=== PATIENT | female | born 1960 | race Hispanic/Latino ===

== ENCOUNTER 2017-03-26 20:31 | Emergency (ER) | payer OTHER ==
[2017-03-26 20:32] VITALS: BMI 20.9
[2017-03-26 21:01] VITALS: RESP 18; TEMP 98.1
[2017-03-26 22:45] LABS: BASO # 0.05 K/mm3 (0.0-2.0); BASO % 0.5 % (0.0-3.0); EOS # 0.1 (0.0-0.7); EOS % 1.4 % (1.5-5.0); GRAN # 5.13 (1.4-6.5); HEMOGLOBIN 12.3 gm/dL (12.0-16.0); LYMPH # 4.3 (1.2-3.4); LYMPH % 41.8 % (22.0-35.0); MEAN CELL VOLUME 94.9 fL (80.0-105.0); MEAN CORPUSCULAR HEMOGLOBIN 31.1 pg (25.0-35.0); MEAN CORPUSCULAR HGB CONC 32.7 g/dl (31.0-37.0); MEAN PLATELET VOLUME 10.7 fl (7.0-11.0); MONO # 0.6 (0.1-0.6); MONO % 6.3 % (1.0-6.0); PLATELET COUNT 221 10^3/uL (120.0-450.0); RBC 3.96 10^6/uL (3.5-6.1); RED CELL DISTRIBUTION WIDTH 15.9 % (11.5-14.5); WHITE BLOOD COUNT 10.2 10^3/ul (4.5-11.0)
[2017-03-26 22:56] LABS: ALB/GLOB RATIO 1.4 (1.1-1.8); ALBUMIN 4.3 g/dL (3.0-4.8); ALT/SGPT 25 U/L (7-56); AST/SGOT 25 U/L (15-39); BLOOD UREA NITROGEN 17 mg/dL (7-21); CALCIUM 8.9 mg/dL (8.4-10.5); GFR AFRICAN-AMERICAN > 60; GFR NON-AFRICAN AMERICAN > 60
[2017-03-26 23:09] LABS: INR 0.93 (0.93-1.08); PARTIAL THROMBOPLASTIN TIME 30.3 Seconds (23.7-30.8)
[2017-03-26 23:27] VITALS: BP 140/80; PULSE 83; O2SAT 100
[2017-03-27] MEDS ORDERED: Lidocaine 1% Inj (20ml) ONE (02:21)
--- NOTE | 2017-04-16 16:12 | ED PDOC ---
Arrival/HPI - General Chief Complaint: Lower Extremity Problem/Injury Time Seen by Provider: 03/26/17 21:48 - History of Present Illness Narrative History of Present Illness (Text): 56F c/o redness, pain, swelling of her right foot. she said she had the same sx in the past and was given clindamycin and then her sx resolved. she denies any f /c, n/v. Past Medical History - Cardiac Hx Cardiac Disorders: No - Pulmonary Other/Comment: 2ppd smoker - Neurological Hx Neurological Disorder: No - HEENT Hx HEENT Disorder: No - Renal Hx Renal Disorder: No - Endocrine/Metabolic Hx Endocrine Disorders: No - Hematological/Oncological Hx Blood Disorders: No - Integumentary Hx Dermatological Disorder: No - Musculoskeletal/Rheumatological Hx Musculoskeletal Disorders: No Hx Falls: No - Gastrointestinal Hx Gastrointestinal Disorders: No - Genitourinary/Gynecological Hx Genitourinary Disorders: No - Psychiatric Hx Psychophysiologic Disorder: Yes Hx Anxiety: Yes Hx Depression: Yes Hx Substance Use: No - Surgical History Hx Amputation: No Other/Comment: c/s x2 Family/Social History Family/Social History: Other (nc) Smoking Status: no Hx Alcohol Use: Yes Hx Substance Use: No Allergies/Home Meds Allergies/Adverse Reactions: Allergies amoxicillin Allergy (Verified 04/02/17 17:01) ANAPHYLAXIS Penicillins Allergy (Verified 04/02/17 17:01) ANAPHYLAXIS Home Medications: Home Meds Medication Instructions Recorded Confirmed traZODone [Desyrel] 100 mg PO HS 06/15/16 04/02/17 Review of Systems - Review of Systems Constitutional: absent: Fevers Respiratory: absent: SOB, Cough Cardiovascular: absent: Chest Pain Gastrointestinal: absent: Abdominal Pain, Nausea, Vomiting Physical Exam Vital Signs Reviewed: Yes Vital Signs Temp Pulse Resp BP Pulse Ox 03/26/17 23:26 83 18 140/80 100 03/26/17 20:58 98.1 F 88 18 136/84 99 Appearance: Positive for: Well-Appearing, Non-Toxic, Comfortable Pain Distress: None Mental Status: Positive for: Alert and Oriented X 3 - Systems Exam Head: Present: Atraumatic Respiratory/Chest: No: Respiratory Distress, Accessory Muscle Use Cardiovascular: Present: Regular Rate and Rhythm Lower Extremity: Present: NORMAL PULSES, Neurovascularly Intact, Other (mild edema and erythema over the dorsal aspect of the right foot). No: CALF TENDERNESS Neurological: Present: GCS=15, Other (no focal deficits) Skin: Present: Warm, Dry Psychiatric: Present: Alert, Oriented x 3 Medical Decision Making ED Course and Treatment: pt appears well. vitals stable, labs unremarkable. pt agrees w plan dc w po abx and return if worse. - Lab Interpretations Lab Results: 03/26/17 22:36 03/26/17 22:36 Lab Results 03/26/17 22:36: PT 10.0, INR 0.93, APTT 30.3 03/26/17 22:36: Sodium 135, Potassium 3.2 L, Chloride 101, Carbon Dioxide 24, Anion Gap 13, BUN 17, Creatinine 0.6, Est GFR ( Amer) > 60, Est GFR (Non- Af Amer) > 60, Random Glucose 98, Calcium 8.9, Total Bilirubin 0.3, AST 25, ALT 25, Alkaline Phosphatase 66, Total Protein 7.3, Albumin 4.3, Globulin 3.0, Albumin/Globulin Ratio 1.4 03/26/17 22:36: WBC 10.2, RBC 3.96, Hgb 12.3, Hct 37.6, MCV 94.9, MCH 31.1, MCHC 32.7, RDW 15.9 H, Plt Count 221, MPV 10.7, Gran % 50.0, Lymph % (Auto) 41.8 H, [place] % (Auto) 6.3 H, Eos % (Auto) 1.4 L, Baso % (Auto) 0.5, Gran # 5.13 , Lymph # 4.3 H, [place] # 0.6, Eos # 0.1, Baso # 0.05 - Medication Orders Current Medication Orders: Discontinued Medications Clindamycin HCl (Cleocin) 300 mg PO STAT STA PRN Reason: Protocol Stop: 03/26/17 22:05 Last Admin: 03/26/17 22:24 Dose: 300 mg Lidocaine HCl (Lidocaine 1% (20ml)) Confirm Administered Dose 20 ml .ROUTE .Buck- MED ONE Stop: 03/27/17 02:22 Disposition/Present on Arrival - Present on Arrival Any Indicators Present on Arrival: No History of DVT/PE: No History of Uncontrolled Diabetes: No Urinary Catheter: No History of Decub. Ulcer: No History Surgical Site Infection Following: None - Disposition Have Diagnosis and Disposition been Completed?: Yes Diagnosis: Cellulitis of foot Disposition: HOME/ ROUTINE Disposition Time: 23:26 Condition: GOOD Discharge Instructions (ExitCare): Cellulitis (ED) Additional Instructions: Please follow up with your doctor. Return to the ER for any worsening symptoms or for any other concerns. Prescriptions: Clindamycin [Cleocin] 300 mg PO QID #28 cap Referrals: Jake Solomon MD [Primary Care Provider] - Follow up with primary
== END 2017-03-26 23:26 | disposition home or self-care (01) ==
LOC: ED 20:31
DX: L03.115 Cellulitis of right lower limb (principal)

== ENCOUNTER 2017-04-02 16:27 | Emergency (ER) | payer OTHER ==
[2017-04-02 16:58] VITALS: TEMP 97.9; BMI 21.6
[2017-04-02 17:49] LABS: ADD MANUAL DIFF? NO
[2017-04-02 17:56] LABS: BASO # 0.04 K/mm3 (0.0-2.0); BASO % 0.5 % (0.0-3.0); EOS # 0.1 (0.0-0.7); EOS % 1.4 % (1.5-5.0); GRAN # 4.66 (1.4-6.5); GRAN % 55.4 % (50.0-68.0); HEMATOCRIT 39.4 % (36.0-48.0); LYMPH # 3.1 (1.2-3.4); LYMPH % 36.6 % (22.0-35.0); MEAN CELL VOLUME 95.2 fL (80.0-105.0); MEAN CORPUSCULAR HEMOGLOBIN 31.6 pg (25.0-35.0); MEAN CORPUSCULAR HGB CONC 33.2 g/dl (31.0-37.0); MEAN PLATELET VOLUME 10.2 fl (7.0-11.0); MONO # 0.5 (0.1-0.6); MONO % 6.1 % (1.0-6.0); PLATELET COUNT 276 10^3/uL (120.0-450.0); RED CELL DISTRIBUTION WIDTH 15.8 % (11.5-14.5); WHITE BLOOD COUNT 8.4 10^3/ul (4.5-11.0)
--- NOTE | 2017-04-02 18:01 | ED PDOC ---
Arrival/HPI - General Chief Complaint: Lower Extremity Problem/Injury Time Seen by Provider: 04/02/17 17:01 Historian: Patient - History of Present Illness Narrative History of Present Illness (Text): 04/02/17 18:11 56-year-old female presents today with a one-week history of right foot pain and swelling. Patient states she was seen in the emergency room approximately a week ago and was started on clindamycin for possible infection in the right foot. Patient denies any recent trauma or injury. Patient states at that time she just assumed she was developing a cellulitis as she has had cellulitis in the past and her feet. Patient denies numbness weakness or tingling in the extremity. No chest pain or shortness of breath. She denies fevers or chills at home. Patient states there is no improvement in the swelling or erythema despite the antibiotics. Patient also complaining of a cramping sensation in the right leg last night. No other complaints Time/Duration: 1 week Symptom Course: Unchanged Quality: Aching, Pressure Severity Level: 4 Past Medical History - Provider Review Nursing Documentation Reviewed: Yes - Travel History Have you recently traveled outside [place] w/in the past 3 mons?: No - Infectious Disease Hx of Infectious Diseases: None - Tetanus Immunization Tetanus Immunization: Unknown - Cardiac Hx Cardiac Disorders: No - Pulmonary Other/Comment: 2ppd smoker - Neurological Hx Neurological Disorder: No - HEENT Hx HEENT Disorder: No - Renal Hx Renal Disorder: No - Endocrine/Metabolic Hx Endocrine Disorders: No - Hematological/Oncological Hx Blood Disorders: No - Integumentary Hx Dermatological Disorder: Yes Hx Cellulitis: Yes - Musculoskeletal/Rheumatological Hx Musculoskeletal Disorders: No Hx Falls: No - Gastrointestinal Hx Gastrointestinal Disorders: No - Genitourinary/Gynecological Hx Genitourinary Disorders: No - Psychiatric Hx Psychophysiologic Disorder: Yes Hx Anxiety: Yes Hx Depression: Yes Hx Substance Use: No - Surgical History Other/Comment: c/s x2 - Anesthesia Hx Anesthesia: Yes Hx Anesthesia Reactions: No Family/Social History - Physician Review Nursing Documentation Reviewed: Yes Family/Social History: Unknown Family HX Smoking Status: no Hx Alcohol Use: Yes Hx Substance Use: No Allergies/Home Meds Allergies/Adverse Reactions: Allergies amoxicillin Allergy (Verified 04/02/17 17:01) ANAPHYLAXIS Penicillins Allergy (Verified 04/02/17 17:01) ANAPHYLAXIS Home Medications: Home Meds Medication Instructions Recorded Confirmed traZODone [Desyrel] 100 mg PO HS 06/15/16 04/02/17 Review of Systems - Review of Systems Constitutional: absent: Fatigue, Fevers Respiratory: absent: SOB, Cough Cardiovascular: absent: Chest Pain, Palpitations Gastrointestinal: absent: Abdominal Pain, Diarrhea, Nausea, Vomiting Musculoskeletal: Arthralgias Skin: Rash, Cellulitis Neurological: absent: Headache, Dizziness Psychiatric: absent: Anxiety, Depression Physical Exam Vital Signs Reviewed: Yes Vital Signs Temp Pulse Resp BP Pulse Ox 04/02/17 16:57 97.9 F 85 19 136/76 97 Temperature: Afebrile Blood Pressure: Normal Pulse: Regular Respiratory Rate: Normal Appearance: Positive for: Well-Appearing, Non-Toxic, Comfortable Pain Distress: None Mental Status: Positive for: Alert and Oriented X 3 - Systems Exam Head: Present: Atraumatic Mouth: Present: Moist Mucous Membranes Respiratory/Chest: Present: Clear to Auscultation Cardiovascular: Present: Regular Rate and Rhythm Upper Extremity: Present: Normal Inspection Lower Extremity: Present: NORMAL PULSES, Normal ROM, Tenderness (right foot; positive edema and erythema and warmth noted over the dorsal aspect of the right foot. There is tenderness noted over the second and third metatarsals. Minimal edema noted to the right ankle without tenderness. Sensation and distal pulses intact. Cap refill less than 2. No calf tenderness), Swelling, Erythema, Neurovascularly Intact, Capillary Refill < 2 s. No: CALF TENDERNESS, Deformity Medical Decision Making ED Course and Treatment: 04/02/17 20:03 56-year-old female with cellulitis to the right foot not improving despite one- week history of clindamycin by mouth. CBC within normal limits CMP within normal limits X-ray the right foot: No fracture Venous duplex of the right lower leg no DVT verbal report from motorcycle technician Patient was offered admission to the hospital for cellulitis with failure of outpatient antibiotics. Patient states she is unable to stay in the hospital. Patient has been advised to not leave the emergency room but has decided to go AGAINST MEDICAL ADVICE. The patient possesses capacity to make decisions and has voiced understanding to all my warnings of potential worsening of the condition for which medical care was sought. I have discussed all known and potential risks and consequences to the patient leaving AGAINST MEDICAL ADVICE. Patient is leaving against medical advise. AMA form signed. witness by Kirill LOOMIS Will send the patient with prescription for Bactrim. Advised return immediately if he wished to continue her care or if symptoms worsen or persist or if new concerning symptoms develop. I stressed the importance of follow-up with primary care physician as soon as possible. Impression: Cellulitis, foot Return if you wish to continue care Bactrim 1 tablet twice daily 7 days Follow-up with your primary care physician within the next 2 days Return immediately if symptoms worsen persist or if new concerning symptoms develop Use cane for ambulation. - Lab Interpretations Lab Results: 04/02/17 17:39 04/02/17 17:39 Lab Results 04/02/17 17:39: WBC 8.4, RBC 4.14, Hgb 13.1, Hct 39.4, MCV 95.2, MCH 31.6, MCHC 33.2, RDW 15.8 H, Plt Count 276, MPV 10.2, Gran % 55.4, Lymph % (Auto) 36.6 H, [place] % (Auto) 6.1 H, Eos % (Auto) 1.4 L, Baso % (Auto) 0.5, Gran # 4.66, Lymph # 3.1, [place] # 0.5, Eos # 0.1, Baso # 0.04 04/02/17 17:39: Sodium 139, Potassium 3.6, Chloride 104, Carbon Dioxide 27, Anion Gap 12, BUN 13, Creatinine 0.7, Est GFR ( Amer) > 60, Est GFR (Non- Af Amer) > 60, Random Glucose 79, Calcium 9.1, Total Bilirubin 0.4, AST 27, ALT 28, Alkaline Phosphatase 61, Total Protein 7.2, Albumin 4.2, Globulin 3.0, Albumin/Globulin Ratio 1.4 - RAD Interpretation Radiology Orders: 04/02/17 17:34 FOOT RIGHT 3 VIEWS ROUTINE [RAD] Stat DUPLEX LOWER EXTRM VEIN RIGHT [US] Stat Disposition/Present on Arrival - Present on Arrival Any Indicators Present on Arrival: No History of DVT/PE: No History of Uncontrolled Diabetes: No Urinary Catheter: No History of Decub. Ulcer: No History Surgical Site Infection Following: None - Disposition Have Diagnosis and Disposition been Completed?: Yes Diagnosis: Cellulitis of foot Disposition: AGAINST MEDICAL ADVICE Disposition Time: 20:05 Patient Plan: Other (AMA) Condition: FAIR Discharge Instructions (ExitCare): Cellulitis (ED) Additional Instructions: Return if you wish to continue care Bactrim 1 tablet twice daily 7 days Follow-up with your primary care physician within the next 2 days Return immediately if symptoms worsen persist or if new concerning symptoms develop Use cane for ambulation. Prescriptions: Sulfamethoxazole/Trimethoprim [Bactrim DS 800 mg-160 mg] 1 tab PO BID #14 tab Referrals: Jake Solomon MD [Primary Care Provider] - Follow up with primary Desean Weiss III, MD [Medical Doctor] - Follow up with primary
[2017-04-02 18:12] LABS: ALB/GLOB RATIO 1.4 (1.1-1.8); ALKALINE PHOSPHATASE 61 U/L (38-133); ALT/SGPT 28 U/L (7-56); AST/SGOT 27 U/L (15-39); BILIRUBIN,TOTAL 0.4 mg/dL (0.2-1.3); BLOOD UREA NITROGEN 13 mg/dL (7-21); CALCIUM 9.1 mg/dL (8.4-10.5); CARBON DIOXIDE 27 mmol/L (21-33); CHLORIDE 104 mmol/L (98-107); GFR AFRICAN-AMERICAN > 60; GLUCOSE,RANDOM 79 mg/dL (70-110); POTASSIUM 3.6 mmol/L (3.6-5.0); SODIUM 139 mmol/L (132-148); TOTAL PROTEIN 7.2 g/dL (5.8-8.3)
[2017-04-02] MEDS ORDERED: Tmp-Smz 800 mg-160 mg DS Tab PO STA (20:01)
[2017-04-02 20:15] VITALS: BP 156/99; PULSE 90; RESP 16; O2SAT 95
--- NOTE | 2017-04-02 20:40 | US ---
PROCEDURE: Right lower extremity venous US HISTORY: Leg pain and swelling. Evaluate for DVT. PHYSICIAN(S): Catalino Rao M.D. TECHNIQUE: Duplex sonography and color-flow Doppler with graded compression were used to evaluate the deep venous system of the right lower extremity. FINDINGS: The visualized deep venous system of the right lower extremity is sonographically normal and compressible. Normal waveforms and augmentation are seen. There is no sonographic evidence for deep venous thrombosis in the visualized segments of the right lower extremity. IMPRESSION: 1. No sonographic evidence for deep venous thrombosis in the visualized segments of the right lower extremity.
--- NOTE | 2017-04-03 09:13 | RAD ---
PROCEDURE: Right Foot Radiographs. HISTORY: foot pain/swelling COMPARISON: None. FINDINGS: BONES: Bone alignment and mineralization are normal. No acute fracture or bone destruction. JOINTS: Normal. SOFT TISSUES: Normal. OTHER FINDINGS: None. IMPRESSION: No acute fracture or dislocation.
== END 2017-04-02 20:15 | disposition left against medical advice (07) ==
LOC: ED 16:27
DX: L03.115 Cellulitis of right lower limb (principal); F17.210 Nicotine dependence, cigarettes, uncomplicated